=== PATIENT | male | born 1955 | race Caucasian/White ===

== ENCOUNTER 2016-08-25 07:53 | Outpatient (CLI) | payer MEDICARE ==
[2016-08-25 08:37] LABS: Anion Gap 18 mmol/L (10-20); BUN (Urea Nitrogen) 63 mg/dL (8.4-25.7); Calc. Creatinine Clearance 0 mL/min (70-130); Calcium 9.6 mg/dL (7.8-10.44); Carbon Dioxide 24 mmol/L (23-31); Chloride 100 mmol/L (98-107); Estimated GFR-MDRD 20; Glucose 339 mg/dL (80-115); Potassium 4.1 mmol/L (3.5-5.1); Sodium 138 mmol/L (136-145)
== END 2016-08-25 07:54 | disposition home or self-care (01) ==
LOC: MADLABBHPM 07:53
PROVIDERS: ATTEND Internal Medicine Nephrology
DX: E11.9 Type 2 diabetes mellitus without complications (principal)
CPT/HCPCS: 36415; 80048

== ENCOUNTER 2017-10-25 07:09 | Outpatient (CLI) | payer MEDICARE ==
[2017-10-25 07:43] LABS: Anion Gap 17 mmol/L (10-20); BUN (Urea Nitrogen) 76 mg/dL (8.4-25.7); Calc. Creatinine Clearance 0 mL/min (70-130); Calcium 9.5 mg/dL (7.8-10.44); Carbon Dioxide 21 mmol/L (23-31); Chloride 106 mmol/L (98-107); Estimated GFR-MDRD 18; Glucose 260 mg/dL (80-115); Potassium 4.4 mmol/L (3.5-5.1); Sodium 140 mmol/L (136-145)
== END 2017-10-25 07:10 | disposition home or self-care (01) ==
LOC: MADLABBHPM 07:09
PROVIDERS: ATTEND Family Medicine
DX: I13.10 Hypertensive heart and chronic kidney disease without heart failure, with stage 1 through stage 4 chronic kidney disease, or unspecified chronic kidney disease (principal); N18.4 Chronic kidney disease, stage 4 (severe)
CPT/HCPCS: 36415; 80048

== ENCOUNTER 2017-12-14 15:08 | Emergency (ER) | payer MEDICARE ==
[2017-12-14 15:48] LABS: INR-International Normal Ratio 1.3; PTT 41.9 SEC (22.9-36.1); Prothrombin Time 16.2 SEC (12.0-14.7)
--- NOTE | 2017-12-14 15:50 | RAD ---
PA AND LATERAL VIEWS CHEST: Date: 12/14/17 HISTORY: Dyspnea. FINDINGS: Comparison made with exam of 01/27/15. The heart size is enlarged. Changes of median sternotomy again seen. There is pulmonary vascular priya estion. No lobar consolidation, pneumothoraces, or pleural effusions are seen. IMPRESSION: Findings suspicious for CHF. POS: [facility]
[2017-12-14 15:58] LABS: ALT (SGPT) 8 U/L (8-55); AST (SGOT) 8 U/L (5-34); Albumin 3.5 g/dL (3.4-4.8); Alkaline Phosphatase 337 U/L (40-150); Anion Gap 19 mmol/L (10-20); BUN (Urea Nitrogen) 93 mg/dL (8.4-25.7); Bilirubin, Total 1.1 mg/dL (0.2-1.2); Calc. Creatinine Clearance 0 mL/min (70-130); Calcium 9.1 mg/dL (7.8-10.44); Carbon Dioxide 17 mmol/L (23-31); Chloride 103 mmol/L (98-107); Estimated GFR-MDRD 15; Globulin 3.1 g/dL (2.4-3.5); Glucose 207 mg/dL (80-115); Magnesium 2.2 mg/dL (1.6-2.6); Potassium 4.4 mmol/L (3.5-5.1); Protein, Total 6.6 g/dL (5.8-8.1); Sodium 135 mmol/L (136-145)
[2017-12-14 16:00] LABS: #Eosinphils 0.2 thou/uL (0.0-0.7); #Lymphocytes 0.6 thou/uL (1.20-3.40); #Monocytes 0.3 thou/uL (0.11-0.59); #Neutrophils 3.7 thou/uL (1.40-6.50); %Basophils 1.3 % (0.0-1.0); %Eosinophils 4.9 % (0.0-10.0); %Lymphocytes 12.6 % (21.0-51.0); %Monocytes 6.8 % (0.0-10.0); %Neutrophils 74.4 % (42.0-75.0); Hemoglobin 8.3 g/dL (14.0-18.0); Mean Corpuscular HGB CONC 32.2 g/dL (32.0-36.0); Mean Corpuscular Hemoglobin 27.1 pg (27.0-31.0); Mean Corpuscular Volume 84.1 fL (78.0-98.0); Mean Platelet Volume 6.7 fL (7.4-10.4); Platelet Count 119 thou/uL (130-400); Red Blood Cell (RBC) Count 3.07 mill/uL (4.70-6.10)
[2017-12-14 16:01] LABS: #Basophils 0.1 thou/uL (0.0-0.2); CKMB 0.8 ng/mL (0-6.6); PLT Morphology Comment Appears Decreased; Troponin I 0.011 ng/mL (< 0.028)
[2017-12-14 16:10] LABS: MDiff Complete? YES
[2017-12-14] MEDS ORDERED: Furosemide 20 MG/2 ML VIAL ONE (16:40)
[2017-12-14] MEDS ORDERED: Furosemide 40 MG/4 ML VIAL ONE (16:40)
== END 2017-12-14 17:15 | disposition short-term general hospital (02) ==
LOC: MADERS 15:08
DX: E87.70 Fluid overload, unspecified (principal); E11.9 Type 2 diabetes mellitus without complications; K21.9 Gastro-esophageal reflux disease without esophagitis; E78.5 Hyperlipidemia, unspecified; I12.0 Hypertensive chronic kidney disease with stage 5 chronic kidney disease or end stage renal disease; N18.6 End stage renal disease; Z87.891 Personal history of nicotine dependence; Z79.899 Other long term (current) drug therapy; Z79.4 Long term (current) use of insulin
CPT/HCPCS: 71046; 80053; 82553; 83735; 83880; 84484; 85025; 85610; 85730; 93005; 96374; J1940

== ENCOUNTER 2017-12-30 07:12 | Outpatient (CLI) | payer MEDICARE ==
[2017-12-30 07:47] LABS: #Basophils 0.1 thou/uL (0.0-0.2); #Eosinphils 0.6 thou/uL (0.0-0.7); #Monocytes 0.6 thou/uL (0.11-0.59); #Neutrophils 5.9 thou/uL (1.40-6.50); %Basophils 0.7 % (0.0-1.0); %Eosinophils 7.3 % (0.0-10.0); %Lymphocytes 12.6 % (21.0-51.0); %Monocytes 6.9 % (0.0-10.0); %Neutrophils 72.5 % (42.0-75.0); Hemoglobin 10.8 g/dL (14.0-18.0); Mean Corpuscular HGB CONC 31.3 g/dL (32.0-36.0); Mean Corpuscular Hemoglobin 26.3 pg (27.0-31.0); Mean Corpuscular Volume 83.9 fL (78.0-98.0); Mean Platelet Volume 6.1 fL (7.4-10.4); Platelet Count 168 thou/uL (130-400); RBC Distribution Width 16.6 % (11.5-14.5); Red Blood Cell (RBC) Count 4.09 mill/uL (4.70-6.10); White Blood Cell (WBC) Count 8.2 thou/uL (4.8-10.8)
[2017-12-30 08:00] LABS: Anion Gap 21 mmol/L (10-20); BUN (Urea Nitrogen) 109 mg/dL (8.4-25.7); Calc. Creatinine Clearance 0 mL/min (70-130); Calcium 10.5 mg/dL (7.8-10.44); Carbon Dioxide 27 mmol/L (23-31); Chloride 94 mmol/L (98-107); Estimated GFR-MDRD 12; Glucose 233 mg/dL (80-115); Potassium 4.1 mmol/L (3.5-5.1); Sodium 138 mmol/L (136-145)
== END 2017-12-30 07:13 | disposition home or self-care (01) ==
LOC: MADLABBHPM 07:12
PROVIDERS: ATTEND Family Medicine
DX: N18.4 Chronic kidney disease, stage 4 (severe) (principal); D63.8 Anemia in other chronic diseases classified elsewhere
CPT/HCPCS: 36415; 80048; 85025

== ENCOUNTER 2018-02-02 07:06 | Outpatient (CLI) | payer MEDICARE ==
[2018-02-02 08:05] LABS: Anion Gap 24 mmol/L (10-20); Calc. Creatinine Clearance 0 mL/min (70-130); Calcium 10.8 mg/dL (7.8-10.44); Carbon Dioxide 27 mmol/L (23-31); Chloride 88 mmol/L (98-107); Estimated GFR-MDRD 9; Glucose 158 mg/dL (80-115); Sodium 136 mmol/L (136-145)
[2018-02-02 08:51] LABS: BUN (Urea Nitrogen) 159 mg/dL (8.4-25.7)
== END 2018-02-02 07:07 | disposition home or self-care (01) ==
LOC: MADLABBHPM 07:06
PROVIDERS: ATTEND Family Medicine
DX: N18.4 Chronic kidney disease, stage 4 (severe) (principal)
CPT/HCPCS: 36415; 80048

== ENCOUNTER 2018-06-20 08:44 | Outpatient (CLI) | payer MEDICARE ==
[2018-06-20 09:20] LABS: Anion Gap 16 mmol/L (10-20); BUN (Urea Nitrogen) 71 mg/dL (8.4-25.7); Calc. Creatinine Clearance 0 mL/min (70-130); Calcium 10.2 mg/dL (7.8-10.44); Carbon Dioxide 20 mmol/L (23-31); Chloride 109 mmol/L (98-107); Estimated GFR-MDRD 17; Glucose 330 mg/dL (80-115); Potassium 5.2 mmol/L (3.5-5.1); Sodium 140 mmol/L (136-145)
== END 2018-06-20 08:45 | disposition home or self-care (01) ==
LOC: MADLAB 08:44
PROVIDERS: ATTEND Internal Medicine Nephrology
DX: I13.2 Hypertensive heart and chronic kidney disease with heart failure and with stage 5 chronic kidney disease, or end stage renal disease (principal); N18.5 Chronic kidney disease, stage 5; I50.9 Heart failure, unspecified
CPT/HCPCS: 36415; 80048

== ENCOUNTER 2019-08-22 13:49 | Outpatient (CLI) | payer MEDICARE ==
[2019-08-22 15:22] LABS: Anion Gap 22 mmol/L (10-20); BUN (Urea Nitrogen) 69 mg/dL (8.4-25.7); Calc. Creatinine Clearance 0 mL/min (70-130); Calcium 8.7 mg/dL (7.8-10.44); Carbon Dioxide 16 mmol/L (23-31); Chloride 106 mmol/L (98-107); Estimated GFR-MDRD 11; Glucose 291 mg/dL (80-115); Sodium 139 mmol/L (136-145)
== END 2019-08-22 13:50 | disposition home or self-care (01) ==
LOC: MADLAB 13:49
PROVIDERS: ATTEND Internal Medicine Nephrology
DX: N18.5 Chronic kidney disease, stage 5 (principal)
CPT/HCPCS: 36415; 80048

== ENCOUNTER 2019-09-26 07:12 | Outpatient (CLI) | payer MEDICARE ==
--- NOTE | 2019-09-26 08:10 | RAD ---
TWO VIEW CHEST: HISTORY: Screening for TB prior to dialysis. COMPARISON: 12/14/2017. FINDINGS: Mild cardiomegaly is again noted and is stable. Postop sternotomy change. Lung romo are clear. T he vascularity is mildly prominent but is stable. No infiltrate. No effusion. No evidence of prima ry or secondary TB identified. IMPRESSION: No acute finding. No interval change. POS: [facility]
[2019-09-26 08:37] LABS: ALT (SGPT) 20 U/L (8-55); AST (SGOT) 15 U/L (5-34); Albumin 3.4 g/dL (3.4-4.8); Alkaline Phosphatase 388 U/L (40-110); Anion Gap 20 mmol/L (10-20); BUN (Urea Nitrogen) 96 mg/dL (8.4-25.7); Bilirubin, Total 0.5 mg/dL (0.2-1.2); Calc. Creatinine Clearance 0 mL/min (70-130); Calcium 9.3 mg/dL (7.8-10.44); Carbon Dioxide 23 mmol/L (23-31); Chloride 102 mmol/L (98-107); Estimated GFR-MDRD 10; Globulin 2.9 g/dL (2.4-3.5); Glucose 177 mg/dL (80-115); Potassium 4.5 mmol/L (3.5-5.1); Protein, Total 6.3 g/dL (5.8-8.1); Sodium 140 mmol/L (136-145)
[2019-09-26 18:07] LABS: HBSAg Index 0.18 S/CO (0-0.99); Hep B Core Total Ab Non-Reactive (NonReactive); Hep B Core Total Index 0.09 S/CO (0-0.79); Hep B Surf AB Non-Reactive (NonReactive); Hep B Surf Ag Non-Reactive S/CO (NonReactive); Hep C IgG Ab Non-Reactive (NonReactive); Hep C Index 0.28 S/CO (0-0.79)
== END 2019-09-26 07:13 | disposition home or self-care (01) ==
LOC: MADLAB 07:12
PROVIDERS: ATTEND Internal Medicine Nephrology
DX: I12.0 Hypertensive chronic kidney disease with stage 5 chronic kidney disease or end stage renal disease (principal); N18.5 Chronic kidney disease, stage 5
CPT/HCPCS: 36415; 71046; 80053; 86704; 86706; 86803; 87340

== ENCOUNTER 2020-12-29 06:55 | Outpatient (CLI) | payer MEDICARE ==
[2020-12-29 07:25] LABS: ALT (SGPT) 12 U/L (8-55); AST (SGOT) 10 U/L (5-34); Albumin 3.4 g/dL (3.4-4.8); Alkaline Phosphatase 250 U/L (40-110); Anion Gap 19 mmol/L (10-20); BUN (Urea Nitrogen) 38 mg/dL (8.4-25.7); Bilirubin, Total 1.2 mg/dL (0.2-1.2); Calc. Creatinine Clearance 0 mL/min (70-130); Calcium 9.8 mg/dL (7.8-10.44); Carbon Dioxide 29 mmol/L (23-31); Cardiac Risk 2.1 (Less than 4.5); Chloride 95 mmol/L (98-107); Cholesterol 78 mg/dl (< 200 Desired); Globulin 2.8 g/dL (2.4-3.5); Glucose 226 mg/dL (80-115); HDL Cholesterol 37 mg/dL (>60 Neg Risk); LDL Cholesterol, Calculated 30 mg/dL; Potassium 3.4 mmol/L (3.5-5.1); Protein, Total 6.2 g/dL (5.8-8.1); Sodium 140 mmol/L (136-145); Triglycerides 57 mg/dL (Less than 150)
== END 2020-12-29 06:56 | disposition home or self-care (01) ==
LOC: MADLAB 06:55
PROVIDERS: ATTEND Nurse Practitioner Family
DX: N18.9 Chronic kidney disease, unspecified (principal)
CPT/HCPCS: 36415; 80053; 80061